=== PATIENT | male | born 1980 | race Caucasian/White ===

== ENCOUNTER 2022-11-10 16:22 | Emergency (ER) | payer OTHER, SELFPAY ==
[2022-11-10] VITALS (7 sets, daily range): BP systolic 108–125; BP diastolic 63–79; PULSE 75–112; RESP 14–17; TEMP 36.5–36.8; O2SAT 95–100; BMI 24.1
--- NOTE | ~2022-11-10 | XR_ITS ---
EXAMINATION: XR CHEST CLINICAL INFORMATION: Chest pain COMPARISON: Chest radiograph from 09/18/2018 TECHNIQUE: 2 views of the chest were obtained. FINDINGS: No focal consolidation. No pneumothorax. Trachea is midline. Cardiomediastinal silhouette is not enlarged. No large pleural effusion. Osseous structures are intact. Soft tissues are unremarkable. XR/XR chest 2V IMPRESSION: No acute cardiopulmonary process.
--- NOTE | 2022-11-10 16:23 | ECG_ITS ---
Test Reason : chest pain Blood Pressure : / mmHG Vent. Rate : 117 BPM Atrial Rate : 117 BPM P-R Int : 144 ms QRS Dur : 090 ms QT Int : 352 ms P-R-T Axes : 056 082 051 degrees QTc Int : 491 ms Sinus tachycardia Possible Left atrial enlargement Borderline ECG When compared with ECG of 17-SEP-2018 21:55, Heart rate has increased Referred By: Santhosh Nguyen Electronically Signed By:EBER CONNOR
--- NOTE | 2022-11-10 16:26 | ED_ITS ---
HPI - General Adult General Chief complaint: Chest Pain Stated complaint: Chest pain Time Seen by Provider: 11/10/22 17:21 Source: patient Mode of arrival: ambulatory Limitations: no limitations History of Present Illness HPI narrative: Patient is a 42-year-old male presents to the emergency department for evaluation of chest pain. It is described as a diffuse anterior pain, it is constant in nature with varying intensity. He is unable to describe the quality of it. He states that his pain was noticed to be worse today while he was resting. He states he has had the pain overall for the past month, and is made worse if he is working around the house, doing yard work, or heavy lifting. He endorses intermittently feeling dizzy, described as an off-balance sensation when he is experiencing intense chest pain. He denies fevers, chills, neck pain, vision changes, shortness of breath, cough, URI symptoms, nausea, vomiting, abdominal pain, numbness or tingling of the extremities, weakness. His mother is present at bedside, she states that he has a history of diabetes in he is not managing it or seeing a doctor. Patient states that his mother made him come here today, as she had been experiencing chest pain for 1 month and was evaluated in the emergency department 1 week ago and subsequently required a pacemaker placement due to an arrhythmia. Related Data Allergies Allergy/AdvReac Type Severity Reaction Status Date / Time methadone Allergy Unknown Verified 12/25/18 00:00 No Known Allergies Allergy Unverified 11/15/19 18:26 [No Known Allergies*] Review of Systems 2 Review of Systems: Constitutional : No Weight loss, No Fever, No Chills ENT/Mouth :? No sore throat, No Rhinorrhea Eyes: No Eye Pain, No Swelling Cardiovascular : pos Chest Pain, no SOB, no Dyspnea on Exertion, No Orthopnea, No Edema, No Palpitations Respiratory : No Cough, No Sputum Gastrointestinal : No Nausea, No Vomiting, No Diarrhea, No abdominal Pain, No Hematochezia, No Melena Genitourinary : No Dysuria, No Urinary Frequency Musculoskeletal : No joint pain, No Myalgias, No Joint Swelling Skin : No Skin Lesions, No rash Neuro : No Weakness, No Numbness, positive Dizziness, No Headache Psych : No Anxiety/Panic, No Depression Heme/Lymph: No Bruising, No Lymphadenopathy Endocrine : No Polyuria, No Polydipsia Yes all other systems are reviewed and are negative [facility] Past Medical History Attestation statement: The following information was validated with the patient. Source: old records reviewed Social History Social History Advance Directives: No Advance Directives Information Provided: Yes Physical Exam ED Vital Signs: Vital Signs - 24 hr 11/10/22 16:48 11/10/22 17:20 11/10/22 19:08 Temperature 98.3 F 98.1 F Pulse Rate 112 H 86 75 Respiratory Rate 14 14 Blood Pressure 115/72 108/64 109/63 Pulse Oximetry 99 95 Oxygen Delivery Method Room Air Room Air 11/10/22 19:10 11/10/22 19:12 11/10/22 19:13 Temperature 97.7 F Pulse Rate 78 82 76 Respiratory Rate 17 Blood Pressure 125/79 125/79 115/71 Pulse Oximetry 100 Oxygen Delivery Method Room Air BMI result Body Mass Index 24.1 Appearance: Alert.?Oriented to person, place and time. No acute distress.?Normal affect. Eyes: Pupils equal, round and reactive to light.? ENT: Pharynx normal.?? Neck: Normal inspection.? Neck supple.?? CVS: Heart sounds normal. Normal heart rate and rhythm.? Pulses normal.?? Respiratory: No respiratory distress.? Lung sounds clear to auscultation bilaterally?? Abdomen: Soft and non-tender. Normoactive bowel sounds. No pulsatile mass.?? Skin: Skin warm and dry.? Normal skin color.? ? Extremities: No lower extremity edema.? No calf ttp? Neuro: Moves all extremities spontaneously. Sensation intact bilaterally. CN II- XII intact. No focal neuro deficits. Ambulates with normal steady gait. Course Course Course Narrative: RME- 42 year old male presents for evaluation of chest pain that started yesterday. Plan for cardiac workup. Reevaluation(s) Reevaluation #1: CBC is without leukocytosis or work for anemia, thrombocytopenia which is lower than his baseline, though he has not had any recent labs here since 2019. At this time would defer the use of aspirin. CMP is overall unremarkable, but for mild hyperglycemia with glucose of 219. Troponin <2.7, EKG revealing a sinus tachycardia with ventricular rate of 117, QTC 491, normal CA interval, no ST elevation, no ST depression, no T-wave inversion, no acute ischemic findings. Given duration of symptoms, unlikely ACS at this time although will obtain delta troponin. D-dimer is not elevated, unlikely pulmonary embolism. Chest x-ray without acute cardiopulmonary process. Time: 19:45 Reevaluation #2: Delta troponin is negative, unlikely ACS. Atypical chest pain. Reviewed these findings with patient. Discussed importance of outpatient follow-up with primary care provider, reviewed worrisome signs and symptoms that would warrant re-evaluation in the emergency department, all questions answered. Stable for discharge. Time: 20:17 Medications Administered Discontinued Medications Generic Name Dose Route Start Last Admin Trade Name Freq PRN Reason Stop Dose Admin Acetaminophen 975 mg 11/10/22 17:56 11/10/22 18:13 Acetaminophen 325 Mg Tablet PO 11/10/22 17:57 975 mg ONCE ONE Administration Medical Decision Making Medical Decision Making MDM Narrative: Patient is a 42-year-old male with past medical history of diabetes presenting to the emergency department for evaluation of chest pain with dizziness as per HPI. At the time of my examination he appears overall well, he is in no apparent respiratory distress. Will obtain CBC to evaluate for leukocytosis/ anemia, CMP and lipase to evaluate for abnormal electrolytes /abnormal renal function/ abnormal hepatic/biliary function, EKG and troponin to evaluate for ischemia/ACS. Chest x-ray to evaluate for consolidation/ infiltrate/ mass/ pulmonary congestion. Differential Diagnosis Differential Diagnoses: The differential diagnosis associated with the presentation includes (As noted above) Admission/Observation Consideration of admission/observation: Escalation of care including admission/observation considered (I considered admission for chest pain, see course narrative for further detail) Lab Data MDM Lab Attestation statement: I reviewed the patient's lab results. (See course narrative for further detail) 11/10/22 16:36 11/10/22 16:36 Labs: Lab Results 11/10/22 11/10/22 Range/Units 16:36 19:33 WBC 6.6 (4.8-10.8) X10*3/uL RBC 4.73 (4.60-5.80) X10*6/uL Hgb 14.1 (14.0-18.0) g/dl Hct 41.6 L (42.0-52.0) % MCV 87.9 (80.0-98.0) fL MCH 29.8 (27.0-33.0) pg MCHC 33.9 (31.0-36.0) g/dl RDW 12.7 (11.0-16.0) % Plt Count 102 L (160-400) X10*3/uL MPV 10.2 (9.4-12.4) fL Immature Gran % (Auto) 0.3 (0.0-0.4) % Neut % (Auto) 86.4 H (45-73) % Lymph % (Auto) 8.5 L (20-40) % [place] % (Auto) 4.6 (2-11) % Eos % (Auto) 0.0 (0-4) % Baso % (Auto) 0.2 (0-2) % Lymph # (Auto) 0.6 L (1.2-4.9) X10*3/uL [place] # (Auto) 0.3 (0.1-1.2) X10*3/uL Eos # (Auto) 0.0 (0.0-0.4) X10*3/uL Baso # (Auto) 0.0 (0.0-0.2) X10*3/uL Abs Immat Gran (auto) 0.02 (0.00-0.03) X10*3/uL Absolute Neuts (auto) 5.7 (2.0-8.3) x10*3/uL Absolute Nucleated RBC 0.000 (0.0-0.012) X10*3/uL Nucleated RBC % (auto) 0.0 (0.0-0.2) /100WBC PT 14.5 H (11.1-13.3) SEC INR 1.2 H (0.9-1.1) D-Dimer High Sensitivty < 150 NG/ML Sodium 135 (135-145) mmol/L Potassium 4.3 (3.3-5.1) mmol/L Chloride 105 (96-108) mmol/L Carbon Dioxide 22 (22-29) mmol/L Anion Gap 12 (12-20) BUN 15 (9-16) mg/dL Creatinine 1.07 (0.5-1.4) mg/dL Estim Creat Clear Calc 93.8 Estimated GFR > 60 Random Glucose 219 H (60-115) mg/dL Calcium 9.0 (8.4-10.2) mg/dL Total Bilirubin 0.9 (0.0-1.0) mg/dL AST 53 H (5-37) U/L ALT 33 (0-40) U/L Alkaline Phosphatase 90 (39-117) U/L Troponin I High Sens < 2.7 < 2.7 (<3.5-35.0) ng/L Total Protein 7.6 (6.5-8.0) g/dL Albumin 3.6 (3.5-5.0) g/dL Lipase 10 (8-78) U/L Independent Interpretation I performed an independent interpretation of an: Plain X-Ray (If personally interpreted chest x-ray and agree with radiologist impression, no evidence of acute pneumonia, consolidation, pneumothorax) Interpretation: XR/XR chest 2V IMPRESSION: No acute cardiopulmonary process. Radiology Impression Discussion of test interpretation with radiology: I have reviewed the radiologist's reading. Independent Historian Clinical information obtained from an independent historian. History obtained from or confirmed by: Parent (Mother present at bedside who confirms history) Discharge Plan Discharge Clinical Impression: Atypical chest pain Patient Disposition: Home, Self-Care Instructions: Chest Pain (ED), Noncardiac Chest Pain (ED) Additional Instructions: As discussed is very important to take your medication for your diabetes as prescribed. Please follow-up with the primary care doctor. You may return back to emergency department any new or worsening symptoms or concerns. Referrals: Physician,Unknown J [Primary Care Provider] - Print Language: [place]
[2022-11-10 16:51] LABS: Hemoglobin 14.1 g/dl (14.0-18.0); Imm Gran Abs Auto 0.02 X10*3/uL (0.00-0.03); Imm Gran Pct Auto 0.3 % (0.0-0.4); PLT CLUMP 1; SCAN SMEAR FLAG 1
[2022-11-10 16:53] LABS: Basophils Percent Auto 0.2 % (0-2); Hematocrit 41.6 % (42.0-52.0); Lymphocytes Absolute Auto 0.6 X10*3/uL (1.2-4.9); Lymphocytes Percent Auto 8.5 % (20-40); Mean Corpuscular HGB Conc 33.9 g/dl (31.0-36.0); Mean Corpuscular Hemoglobin 29.8 pg (27.0-33.0); Mean Corpuscular Volume 87.9 fL (80.0-98.0); Mean Platelet Volume 10.2 fL (9.4-12.4); Monocytes Absolute Auto 0.3 X10*3/uL (0.1-1.2); Monocytes Percent Auto 4.6 % (2-11); Neutrophils Absolute Auto 5.7 x10*3/uL (2.0-8.3); Neutrophils Percent Auto 86.4 % (45-73); Red Blood Count 4.73 X10*6/uL (4.60-5.80); Red Cell Distribution Width 12.7 % (11.0-16.0)
[2022-11-10 16:58] LABS: Platelet Count 102 X10*3/uL (160-400); White Blood Count 6.6 X10*3/uL (4.8-10.8)
[2022-11-10 16:59] LABS: Alanine Aminotransferase 33 U/L (0-40); Albumin Level 3.6 g/dL (3.5-5.0); Alkaline Phosphatase 90 U/L (39-117); Anion Gap 12 (12-20); Aspartate Amino Transferase 53 U/L (5-37); Bilirubin Total 0.9 mg/dL (0.0-1.0); Blood Urea Nitrogen 15 mg/dL (9-16); Carbon Dioxide 22 mmol/L (22-29); Chloride 105 mmol/L (96-108); Creatinine Clr Calc Pharmacy 93.8; Estimated Glomerular Filt Rate > 60; Glucose Random 219 mg/dL (60-115); INTERNATIONAL NORM RATIO 1.2 (0.9-1.1); Lipase 10 U/L (8-78); MANUAL DIFF FLAG NO; Potassium 4.3 mmol/L (3.3-5.1); Prothrombin Time 14.5 SEC (11.1-13.3); Sodium 135 mmol/L (135-145); Total Protein 7.6 g/dL (6.5-8.0)
[2022-11-10 17:07] LABS: Troponin-I High Sensitivity < 2.7 ng/L (<3.5-35.0)
[2022-11-10 17:55] LABS: D Dimer High Sensitivity < 150 NG/ML
[2022-11-10] MEDS: Acetaminophen 325 MG TABLET 975 MG PO (18:13)
--- NOTE | 2022-11-10 18:14 | PC.NURSE ---
medicated per the MAR for pain
[2022-11-10 20:03] LABS: Troponin-I High Sensitivity < 2.7 ng/L (<3.5-35.0)
== END 2022-11-10 21:00 | disposition home or self-care (01) ==
PROVIDERS: Nurse Practitioner Family; Physician Assistant; Emergency Provider Student in an Organized Health Care Education/Training Program
DX: R07.89 Other chest pain (principal); R42 Dizziness and giddiness; Z79.899 Other long term (current) drug therapy
CPT/HCPCS: 36415; 71046; 80053; 83690; 84484; 85025; 85379; 85610; 93005; 99283; 99284

== ENCOUNTER 2023-04-17 10:45 | Emergency (ER) | payer OTHER, SELFPAY ==
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
[2023-04-17 10:55] VITALS: BP 139/90; BP 158/92; PULSE 86; PULSE 93; RESP 16; TEMP 36.9; O2SAT 100; O2SAT 98; BMI 24.1
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
--- NOTE | 2023-04-17 11:13 | PC.NURSE ---
pt to CT a this time. pt remains in PD custody - PD accompanying pt to scan.
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
--- NOTE | 2023-04-17 12:37 | PC.NURSE ---
vss and up to date at this. pt changed into hospital attire. 20gIV placed in the left forearm. pt ready to be transferred to [facility] at this time.
[2023-04-17 12:51] VITALS: BP 121/88; PULSE 86; RESP 16; TEMP 36.8; O2SAT 100
--- NOTE | 2023-04-17 12:56 | PC.NURSE ---
report given to Allison QUINONES at this time. pt being prepared fro transfer.
--- NOTE | 2023-04-17 13:28 | PC.NURSE ---
Report given to KAPIL Villalba at [facility] ER. pt leaving [facility] via Allison at this time.
== END 2023-04-17 13:30 | disposition short-term general hospital (02) ==
PROVIDERS: Emergency Provider Emergency Medicine
DX: S12.400A Unspecified displaced fracture of fifth cervical vertebra, initial encounter for closed fracture (principal); M54.2 Cervicalgia; R51.9 Headache, unspecified; V43.52XA Car driver injured in collision with other type car in traffic accident, initial encounter; Y93.9 Activity, unspecified; Y92.410 Unspecified street and highway as the place of occurrence of the external cause; Y99.8 Other external cause status
CPT/HCPCS: 70450; 72125; 99285

== ENCOUNTER 2023-07-15 12:58 | Outpatient (AMB) | payer OTHER, SELFPAY ==
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
[2023-07-15 13:26] VITALS: BP 110/70; PULSE 77; RESP 14; TEMP 37.3; O2SAT 98
== END 2023-07-15 13:59 | disposition home or self-care (01) ==
PROVIDERS: PCP Internal Medicine; Visit Provider Internal Medicine
DX: E11.65 Type 2 diabetes mellitus with hyperglycemia (principal); Z79.4 Long term (current) use of insulin; F19.10 Other psychoactive substance abuse, uncomplicated; Z72.0 Tobacco use; M25.50 Pain in unspecified joint; R76.8 Other specified abnormal immunological findings in serum
CPT/HCPCS: 99204; G2211